=== PATIENT | female | born 1960 | race Caucasian/White ===

== ENCOUNTER 2021-12-15 16:55 | Inpatient (IN) | payer OTHER ==
[~2021-12-15] VITALS: Ht 157.5 cm; Wt 78.5 kg
[2021-12-15] MEDS ORDERED: SODIUM CHLORIDE 0.9% 1,000 ML IV ONE (21:00)
[2021-12-15] MEDS ORDERED: PIPERACILLIN/TAZ 3.375G PREMIX 50 ML IV NR (21:30)
[2021-12-15] MEDS ORDERED: VANCOMYCIN 1G PREMIX 200 ML IV NR (22:00)
[2021-12-15 22:05] LABS: BASOPHILS % 0.6 % (0.0-2.0); EOSINOPHILS % 4.3 % (0.0-5.0); HEMATOCRIT. 28.7 % (36.0-48.0); HEMOGLOBIN. 9.4 g/dL (12.0-16.0); LYMPHOCYTES % 21.8 % (20.0-50.0); MEAN CORPUSCULAR HEMOGLOBIN 25.4 pg (28.0-32.0); MEAN CORPUSCULAR VOLUME 77.9 fL (81.0-99.0); MEAN PLATELET VOLUME 8.4 fl (7.4-10.4); MONOCYTES % 9.1 % (2.0-8.0); NEUTROPHILS % 64.2 % (40.0-76.0); PLATELET 251 x1000/uL (130-400); RED BLOOD CELL COUNT 3.69 mill/uL (4.2-5.4); RED CELL DISTRIBUTION WIDTH 17.1 % (11.6-14.6)
[2021-12-15 22:12] LABS: CHLORIDE 102 mEq/L (98-107)
[2021-12-16 05:08] VITALS: BP 109/57
[2021-12-16] MEDS ORDERED: DEXTROSE 50% WATER 50ML SYRINGE IV PRN (06:00)
[2021-12-16] MEDS: BLOOD SUGAR DIAGNOSTIC STRIP TEST SCH ×3 (07:06→20:45)
[2021-12-16] MEDS: INSULIN LISPRO 100 UNITS/ML SUBCUT SCH ×4 (07:50→21:32)
[2021-12-16 08:00] VITALS: BP 129/57
[2021-12-16] MEDS ORDERED: PIPERACILLIN/TAZOBACTAM 3.375 G in DEXTROSE 5% WATER 50 ML IV SCH (08:00)
[2021-12-16] MEDS: APIXABAN 2.5 MG TABLET PO SCH ×2 (09:00→17:16)
[2021-12-16] MEDS: PIPERACILLIN/TAZOBACTAM 3.375G in DEXT 5% WATER 50ML IV SCH ×3 (10:16→21:32)
[2021-12-16 12:00] VITALS: BP 126/51
[2021-12-16 16:00] VITALS: BP 136/56
[2021-12-16] MEDS ORDERED: VANCOMYCIN 750 MG in DEXT 5% WATER 250 ML IV SCH (16:00)
[2021-12-16 20:00] VITALS: BP 142/60
[2021-12-16] MEDS: ATORVASTATIN CALCIUM 40MG TABLET PO SCH (21:32)
[2021-12-17] VITALS: BP 134/53
[2021-12-17] MEDS ORDERED: ATOR-2 MT (02:47)
[2021-12-17] MEDS ORDERED: APIX2.5T MT (02:47)
[2021-12-17] MEDS ORDERED: CLOP-31 PO (02:49)
[2021-12-17] MEDS ORDERED: LISI-186 MT (02:49)
[2021-12-17] MEDS ORDERED: ERTU5TAB PO (02:50)
[2021-12-17] MEDS ORDERED: GABA-532 PO (02:51)
[2021-12-17 04:00] VITALS: BP 140/68
[2021-12-17] MEDS: BLOOD SUGAR DIAGNOSTIC STRIP TEST SCH ×4 (06:05→20:09)
[2021-12-17] MEDS: INSULIN LISPRO 100 UNITS/ML SUBCUT SCH ×4 (06:05→20:09)
[2021-12-17] MEDS: PIPERACILLIN/TAZOBACTAM 3.375G in DEXT 5% WATER 50ML IV SCH ×3 (06:05→21:03)
[2021-12-17 07:20] LABS: BASOPHILS % 0.9 % (0.0-2.0); EOSINOPHILS % 6.5 % (0.0-5.0); HEMATOCRIT. 26.4 % (36.0-48.0); HEMOGLOBIN. 8.5 g/dL (12.0-16.0); LYMPHOCYTES % 33.9 % (20.0-50.0); MEAN CORPUSCULAR HEMOGLOBIN 25.2 pg (28.0-32.0); MEAN CORPUSCULAR VOLUME 78.4 fL (81.0-99.0); MEAN PLATELET VOLUME 8.3 fl (7.4-10.4); MONOCYTES % 8.3 % (2.0-8.0); NEUTROPHILS % 50.4 % (40.0-76.0); PLATELET 228 x1000/uL (130-400); RED BLOOD CELL COUNT 3.37 mill/uL (4.2-5.4); RED CELL DISTRIBUTION WIDTH 16.9 % (11.6-14.6)
[2021-12-17 08:00] VITALS: BP 130/58
[2021-12-17] MEDS: APIXABAN 2.5 MG TABLET PO SCH ×2 (08:15→17:00)
[2021-12-17 12:00] VITALS: BP 131/50
[2021-12-17] MEDS ORDERED: IOHEXOL-350 100 ML BOTTLE ONE (12:24)
[2021-12-17] MEDS ORDERED: SILV50CR31 TP (14:24)
[2021-12-17] MEDS ORDERED: TC025C15 TP (14:24)
[2021-12-17] MEDS ORDERED: INSNOV SUBCUT (14:24)
[2021-12-17 16:00] VITALS: BP 124/61
[2021-12-17] MEDS: VANCOMYCIN 750 MG in DEXT 5% WATER 250 ML IV SCH (18:27)
[2021-12-17 20:00] VITALS: BP 152/59
[2021-12-17] MEDS: ATORVASTATIN CALCIUM 40MG TABLET PO SCH (20:07)
[2021-12-18] VITALS: BP 143/61
[2021-12-18 04:00] VITALS: BP 117/42
[2021-12-18] MEDS: PIPERACILLIN/TAZOBACTAM 3.375G in DEXT 5% WATER 50ML IV SCH ×3 (05:39→22:31)
[2021-12-18] MEDS: BLOOD SUGAR DIAGNOSTIC STRIP TEST SCH ×4 (05:42→21:00)
[2021-12-18] MEDS: INSULIN LISPRO 100 UNITS/ML SUBCUT SCH ×4 (07:02→22:38)
[2021-12-18] MEDS: APIXABAN 2.5 MG TABLET PO SCH ×3 (09:00→17:19)
[2021-12-18] MEDS: VANCOMYCIN 750 MG in DEXT 5% WATER 250 ML IV SCH (12:08)
[2021-12-18 20:00] VITALS: BP 130/53
[2021-12-18] MEDS: ATORVASTATIN CALCIUM 40MG TABLET PO SCH (22:30)
[2021-12-19] VITALS: BP 126/53
[2021-12-19 04:00] VITALS: BP 143/58
[2021-12-19 04:35] LABS: VANCOMYCIN TROUGH 24.3 ug/mL (5.0-10.0)
[2021-12-19] MEDS: PIPERACILLIN/TAZOBACTAM 3.375G in DEXT 5% WATER 50ML IV SCH ×3 (06:05→21:31)
[2021-12-19] MEDS: BLOOD SUGAR DIAGNOSTIC STRIP TEST SCH ×4 (06:08→21:24)
[2021-12-19] MEDS: INSULIN LISPRO 100 UNITS/ML SUBCUT SCH ×4 (07:50→21:31)
[2021-12-19 08:00] VITALS: BP 141/52
[2021-12-19 08:04] LABS: BASOPHILS % 0.9 % (0.0-2.0); EOSINOPHILS % 6.3 % (0.0-5.0); HEMATOCRIT. 27.4 % (36.0-48.0); HEMOGLOBIN. 8.9 g/dL (12.0-16.0); LYMPHOCYTES % 28.5 % (20.0-50.0); MEAN CORPUSCULAR HEMOGLOBIN 25.2 pg (28.0-32.0); MEAN CORPUSCULAR VOLUME 77.9 fL (81.0-99.0); MEAN PLATELET VOLUME 7.9 fl (7.4-10.4); MONOCYTES % 7.8 % (2.0-8.0); NEUTROPHILS % 56.5 % (40.0-76.0); PLATELET 251 x1000/uL (130-400); RED BLOOD CELL COUNT 3.52 mill/uL (4.2-5.4); RED CELL DISTRIBUTION WIDTH 16.7 % (11.6-14.6)
[2021-12-19] MEDS: APIXABAN 2.5 MG TABLET PO SCH ×2 (09:00→16:34)
[2021-12-19] MEDS ORDERED: LIDOCAINE HCL 1% 10 MG/ML 10ML VIAL ONE (10:59)
[2021-12-19] MEDS ORDERED: IODIXANOL 320MG/ML 100 ML BOTTLE IV ONE (10:59)
[2021-12-19] MEDS ORDERED: FENTANYL CITRATE/PF 50MCG/ML 2ML VIAL ONE (11:32)
[2021-12-19] MEDS ORDERED: HEPARIN 1000 UNITS/ML 10ML ONE (11:32)
[2021-12-19] MEDS ORDERED: MIDAZOLAM HCL 2 MG/2 ML VIAL ONE (11:32)
[2021-12-19] MEDS ORDERED: PROTAMINE SULFATE 10MG/ML VIAL 25ML IV ONE (12:23)
[2021-12-19] MEDS ORDERED: PROTAMINE SULFATE 10MG/ML VIAL 5ML IV ONE (12:24)
[2021-12-19] MEDS ORDERED: HYDROCODONE/ACETAMINOPHEN 5/325MG TABLET PO PRN (14:00)
[2021-12-19] MEDS ORDERED: NALOXONE HCL 0.4MG/ML VIAL IV PRN (15:15)
[2021-12-19 16:00] VITALS: BP_SYST 147; BP_SYST 156; BP_DIAS 67; BP_DIAS 84
[2021-12-19 20:00] VITALS: BP 150/54
[2021-12-19] MEDS: ATORVASTATIN CALCIUM 40MG TABLET PO SCH (21:32)
[2021-12-20] VITALS: BP 108/60
[2021-12-20] MEDS ORDERED: VANCOMYCIN 750MG PREMIX 150 ML IV SCH
[2021-12-20] MEDS ORDERED: VANCOMYCIN 750 MG in DEXT 5% WATER 250 ML IV SCH ×2
[2021-12-20 04:00] VITALS: BP 148/63
[2021-12-20] MEDS: VANCOMYCIN 1GM PMX (XELLIA) 200 ML IV SCH (05:00)
[2021-12-20] MEDS: PIPERACILLIN/TAZOBACTAM 3.375G in DEXT 5% WATER 50ML IV SCH ×3 (05:01→22:25)
[2021-12-20] MEDS: BLOOD SUGAR DIAGNOSTIC STRIP TEST SCH ×4 (06:21→20:37)
[2021-12-20] MEDS: INSULIN LISPRO 100 UNITS/ML SUBCUT SCH ×4 (06:21→20:37)
[2021-12-20 08:00] VITALS: BP 134/65
[2021-12-20] MEDS: APIXABAN 2.5 MG TABLET PO SCH ×2 (09:30→17:43)
[2021-12-20 12:00] VITALS: BP 120/56
[2021-12-20 12:31] LABS: TOTAL IRON BINDING CAPACITY 237 ug/dL (250-450)
[2021-12-20] MEDS: DOCUSATE SODIUM 250MG CAPSULE PO SCH (13:06)
[2021-12-20 16:00] VITALS: BP 150/63
[2021-12-20 20:00] VITALS: BP 135/63
[2021-12-20] MEDS: ATORVASTATIN CALCIUM 40MG TABLET PO SCH (20:35)
[2021-12-21] VITALS: BP 132/45
[2021-12-21 04:00] VITALS: BP 120/65
[2021-12-21] MEDS: BLOOD SUGAR DIAGNOSTIC STRIP TEST SCH ×4 (07:20→20:57)
[2021-12-21 08:00] VITALS: BP 143/60
[2021-12-21] MEDS: APIXABAN 2.5 MG TABLET PO SCH ×2 (08:56→18:14)
[2021-12-21] MEDS: DOCUSATE SODIUM 250MG CAPSULE PO SCH (08:56)
[2021-12-21] MEDS: INSULIN LISPRO 100 UNITS/ML SUBCUT SCH ×4 (08:58→20:58)
[2021-12-21 12:00] VITALS: BP 129/53
[2021-12-21 16:00] VITALS: BP 153/65
[2021-12-21] MEDS: VANCOMYCIN 1GM PMX (XELLIA) 200 ML IV SCH (18:14)
[2021-12-21] MEDS: ATORVASTATIN CALCIUM 40MG TABLET PO SCH (20:52)
[2021-12-22] VITALS: BP 118/61
[2021-12-22 04:00] VITALS: BP 119/71
[2021-12-22 07:03] LABS: HEMATOCRIT 26.7 % (36.0-48.0); HEMOGLOBIN 8.7 g/dL (12.0-16.0); MEAN CORPUSCULAR HEMOGLOBIN 25.3 pg (28.0-32.0); MEAN CORPUSCULAR VOLUME 77.7 fL (81.0-99.0); PLATELET 248 x1000/uL (130-400); RED BLOOD CELL COUNT 3.44 mill/uL (4.2-5.4)
[2021-12-22] MEDS: INSULIN LISPRO 100 UNITS/ML SUBCUT SCH ×4 (07:50→21:38)
[2021-12-22 08:00] VITALS: BP 154/67
[2021-12-22] MEDS: BLOOD SUGAR DIAGNOSTIC STRIP TEST SCH ×4 (08:14→21:39)
[2021-12-22] MEDS ORDERED: LIDOCAINE HCL 1% 50ML VIAL (10MG/ML) ONE (08:51)
[2021-12-22] MEDS ORDERED: POLYMYXIN B SULFATE 500000 UNITS/VIAL ONE (08:51)
[2021-12-22] MEDS ORDERED: BUPIVACAINE HCL/PF 0.5% (5MG/ML) 30ML ONE (08:52)
[2021-12-22] MEDS ORDERED: BACITRACIN 15GM TUBE TOP ONE (08:52)
[2021-12-22] MEDS: CLONIDINE 0.1MG TABLET PO PRN ×2 (12:56→16:06)
[2021-12-22 16:00] VITALS: BP 133/64
[2021-12-22] MEDS: DOCUSATE SODIUM 250MG CAPSULE PO SCH ×2 (16:05→18:02)
[2021-12-22] MEDS: APIXABAN 2.5 MG TABLET PO SCH ×2 (16:06→18:02)
[2021-12-22 17:15] LABS: BASOPHILS % 0.6 % (0.0-2.0); EOSINOPHILS % 4.2 % (0.0-5.0); HEMATOCRIT. 27.2 % (36.0-48.0); HEMOGLOBIN. 8.7 g/dL (12.0-16.0); LYMPHOCYTES % 27.4 % (20.0-50.0); MEAN CORPUSCULAR VOLUME 78.3 fL (81.0-99.0); MEAN PLATELET VOLUME 8.1 fl (7.4-10.4); MONOCYTES % 6.4 % (2.0-8.0); NEUTROPHILS % 61.4 % (40.0-76.0); PLATELET 248 x1000/uL (130-400); RED BLOOD CELL COUNT 3.47 mill/uL (4.2-5.4); RED CELL DISTRIBUTION WIDTH 17.5 % (11.6-14.6)
[2021-12-22] MEDS ORDERED: VANCOMYCIN 1GM PMX (XELLIA) 200 ML IV SCH (18:00)
[2021-12-22 20:00] VITALS: BP 135/60
[2021-12-22] MEDS: ATORVASTATIN CALCIUM 40MG TABLET PO SCH (21:38)
[2021-12-22] MEDS: FAMOTIDINE 20MG TABLET PO SCH (21:38)
[2021-12-22] MEDS: PIPERACILLIN/TAZOBACTAM 3.375 G in DEXTROSE 5% WATER 50 ML IV SCH (21:39)
[2021-12-23] VITALS: BP 140/62
[2021-12-23 04:00] VITALS: BP 131/68
[2021-12-23] MEDS: BLOOD SUGAR DIAGNOSTIC STRIP TEST SCH ×4 (06:31→21:00)
[2021-12-23] MEDS: PIPERACILLIN/TAZOBACTAM 3.375 G in DEXTROSE 5% WATER 50 ML IV SCH ×3 (06:31→23:45)
[2021-12-23] MEDS: INSULIN LISPRO 100 UNITS/ML SUBCUT SCH ×4 (07:41→21:00)
[2021-12-23 08:00] VITALS: BP_SYST 136; BP_SYST 141; BP_DIAS 55; BP_DIAS 78
[2021-12-23] MEDS: APIXABAN 2.5 MG TABLET PO SCH ×2 (09:40→18:50)
[2021-12-23 12:00] VITALS: BP 136/55
[2021-12-23 16:00] VITALS: BP 142/64
[2021-12-23 20:00] VITALS: BP 152/63
[2021-12-23] MEDS: FAMOTIDINE 20MG TABLET PO SCH (21:00)
[2021-12-23] MEDS: ATORVASTATIN CALCIUM 40MG TABLET PO SCH (23:45)
[2021-12-24] VITALS: BP 153/54
[2021-12-24 04:00] VITALS: BP 136/59
[2021-12-24] MEDS: PIPERACILLIN/TAZOBACTAM 3.375 G in DEXTROSE 5% WATER 50 ML IV SCH ×3 (06:00→22:08)
[2021-12-24] MEDS: VANCOMYCIN 1G PREMIX 200 ML IV SCH (06:00)
[2021-12-24] MEDS: BLOOD SUGAR DIAGNOSTIC STRIP TEST SCH ×4 (07:36→21:00)
[2021-12-24] MEDS: DOCUSATE SODIUM 250MG CAPSULE PO SCH (09:23)
[2021-12-24] MEDS: APIXABAN 2.5 MG TABLET PO SCH ×2 (09:23→17:57)
[2021-12-24] MEDS: INSULIN LISPRO 100 UNITS/ML SUBCUT SCH ×3 (09:53→17:49)
[2021-12-24 12:00] VITALS: BP 180/78
[2021-12-24] MEDS: CLONIDINE 0.1MG TABLET PO PRN (18:04)
[2021-12-24 20:00] VITALS: BP 112/52
[2021-12-24] MEDS: ATORVASTATIN CALCIUM 40MG TABLET PO SCH (22:07)
[2021-12-24] MEDS: FAMOTIDINE 20MG TABLET PO SCH (22:07)
[2021-12-25] VITALS: BP 141/55
[2021-12-25] MEDS: INSULIN LISPRO 100 UNITS/ML SUBCUT SCH ×5 (00:11→22:21)
[2021-12-25 04:00] VITALS: BP 137/48
[2021-12-25] MEDS: BLOOD SUGAR DIAGNOSTIC STRIP TEST SCH ×4 (05:58→21:22)
[2021-12-25] MEDS: PIPERACILLIN/TAZOBACTAM 3.375 G in DEXTROSE 5% WATER 50 ML IV SCH ×3 (05:58→22:21)
[2021-12-25 08:00] VITALS: BP 106/58
[2021-12-25] MEDS: APIXABAN 2.5 MG TABLET PO SCH ×2 (09:17→16:27)
[2021-12-25] MEDS: DOCUSATE SODIUM 250MG CAPSULE PO SCH (09:17)
[2021-12-25 12:00] VITALS: BP 159/69
[2021-12-25 15:43] VITALS: BP 159/63
[2021-12-25] MEDS: VANCOMYCIN 1G PREMIX 200 ML IV SCH (17:10)
[2021-12-25 20:00] VITALS: BP 118/55
[2021-12-25] MEDS: FAMOTIDINE 20MG TABLET PO SCH (21:22)
[2021-12-25] MEDS: ATORVASTATIN CALCIUM 40MG TABLET PO SCH (21:22)
[2021-12-26] VITALS: BP 128/67
[2021-12-26 04:00] VITALS: BP 133/55
[2021-12-26] MEDS: PIPERACILLIN/TAZOBACTAM 3.375 G in DEXTROSE 5% WATER 50 ML IV SCH ×2 (06:00→13:09)
[2021-12-26] MEDS: BLOOD SUGAR DIAGNOSTIC STRIP TEST SCH ×2 (07:31→12:20)
[2021-12-26 08:00] VITALS: BP 166/69
[2021-12-26] MEDS ORDERED: SULF1TAB48 MT (09:27)
[2021-12-26] MEDS ORDERED: LEVO250T43 MT (09:27)
[2021-12-26] MEDS: DOCUSATE SODIUM 250MG CAPSULE PO SCH (09:55)
[2021-12-26] MEDS: APIXABAN 2.5 MG TABLET PO SCH (09:55)
[2021-12-26] MEDS: INSULIN LISPRO 100 UNITS/ML SUBCUT SCH ×2 (09:59→13:31)
[2021-12-26 12:00] VITALS: BP 158/70
[2021-12-26 12:32] VITALS: BP 158/70
== END 2021-12-26 16:00 | disposition home health service (06) | DRG 240 ==
LOC: ER 16:55 → 6EST 12-16 00:45 → ENRESERV 12-16 04:14
PROVIDERS: ADMIT Internal Medicine; ATTEND Internal Medicine
PROC: 047L3DZ Dilation of Left Femoral Artery with Intraluminal Device, Percutaneous Approach (ICD-10-PCS; principal; 2021-12-19)
PROC: 047N3DZ Dilation of Left Popliteal Artery with Intraluminal Device, Percutaneous Approach (ICD-10-PCS; 2021-12-19)
PROC: 0JBR0ZZ Excision of Left Foot Subcutaneous Tissue and Fascia, Open Approach (ICD-10-PCS; 2021-12-22)
PROC: 0Y6N0ZC Detachment at Left Foot, Partial 3rd Ray, Open Approach (ICD-10-PCS; 2021-12-22)
DX: E11.52 Type 2 diabetes mellitus with diabetic peripheral angiopathy with gangrene (principal); E44.1 Mild protein-calorie malnutrition; M86.8X7 Other osteomyelitis, ankle and foot; N17.9 Acute kidney failure, unspecified; E11.69 Type 2 diabetes mellitus with other specified complication; S92.912A Unspecified fracture of left toe(s), initial encounter for closed fracture; E11.22 Type 2 diabetes mellitus with diabetic chronic kidney disease; N18.9 Chronic kidney disease, unspecified; D50.9 Iron deficiency anemia, unspecified; X58.XXXA Exposure to other specified factors, initial encounter; E11.621 Type 2 diabetes mellitus with foot ulcer; E11.628 Type 2 diabetes mellitus with other skin complications; L97.529 Non-pressure chronic ulcer of other part of left foot with unspecified severity; E66.9 Obesity, unspecified; Z20.822 Contact with and (suspected) exposure to COVID-19; L03.032 Cellulitis of left toe; Z79.01 Long term (current) use of anticoagulants; Z79.4 Long term (current) use of insulin; Z89.431 Acquired absence of right foot; Z71.3 Dietary counseling and surveillance; Y93.89 Activity, other specified; Y92.89 Other specified places as the place of occurrence of the external cause; Y99.8 Other external cause status; Z68.31 Body mass index [BMI] 31.0-31.9, adult
CPT/HCPCS: 36415; 37226; 71045; 73630; 75635; 75710; 80048; 80053; 80202; 82728; 82962; 83036; 83540; 83550; 83605; 84145; 85025; 85027; 85651; 86850; 86900; 87070; 87075; 87426; 88302; 88311; 93005; 93923; 97110; 97116; 97162; 97530; 99291; C1760; C1769; C1876; C1893; C1894; C2623; J1644; J1815; J2250; J2543; J2720; J3010; J3370; J3490; J7040; J7042; J7060; Q9967

== ENCOUNTER 2022-08-22 15:35 | Inpatient (IN) | payer OTHER ==
[~2022-08-22] VITALS: Ht 167.6 cm; Wt 60.9 kg
[~2022-08-22 15:35] MED LIST: APIX2.5T MT; ATOR-2 MT; CLOP-31 PO; ERTU5TAB PO; GABA-532 PO; INSNOV SUBCUT; LEVO250T74 MT; LISI-186 MT; SILV50CR31 TP; SULF1TAB48 MT; TC025C15 TP
[2022-08-22 20:21] LABS: BASOPHILS % 0.7 % (0.0-2.0); EOSINOPHILS % 1.1 % (0.0-5.0); HEMATOCRIT. 29.2 % (36.0-48.0); HEMOGLOBIN. 9.3 g/dL (12.0-16.0); LYMPHOCYTES % 22.7 % (20.0-50.0); MEAN CORPUSCULAR HEMOGLOBIN 24.9 pg (28.0-32.0); MEAN CORPUSCULAR VOLUME 77.9 fL (81.0-99.0); MEAN PLATELET VOLUME 8.6 fl (7.4-10.4); MONOCYTES % 9.3 % (2.0-8.0); NEUTROPHILS % 66.2 % (40.0-76.0); PLATELET 300 x1000/uL (130-400); RED BLOOD CELL COUNT 3.75 mill/uL (4.2-5.4); RED CELL DISTRIBUTION WIDTH 15.3 % (11.6-14.6)
[2022-08-22 20:24] LABS: CHLORIDE 109 mEq/L (98-107)
[2022-08-23 05:55] VITALS: BP 105/40
[2022-08-23 08:00] VITALS: BP 121/47
[2022-08-23] MEDS ORDERED: ACETAMINOPHEN 325MG TABLET PO PRN (08:15)
[2022-08-23] MEDS ORDERED: ONDANSETRON HCL 4MG/2ML INJ IV PRN (08:15)
[2022-08-23] MEDS: SODIUM BICARBONATE 50 MEQ in SODIUM CHLORIDE 0.45% 1,000 ML IV SCH (10:20)
[2022-08-23] MEDS: PANTOPRAZOLE SODIUM 40 MG/VIAL IV SCH ×2 (10:20→16:42)
[2022-08-23 12:00] VITALS: BP 131/53
[2022-08-23 16:00] VITALS: BP 106/44
[2022-08-23 19:02] LABS: CLARITY URINE CLOUDY (CLEAR); COLOR URINE YELLOW (YELLOW); KETONES URINE NEGATIVE (NEGATIVE); LEUKOCYTE ESTERASE URINE 3+ (NEGATIVE); NITRITE URINE NEGATIVE (NEGATIVE); OCCULT BLOOD URINE TRACE (NEGATIVE); PROTEIN URINE 1+ (NEGATIVE); SPECIFIC GRAVITY URINE 1.017 (1.005-1.030); UROBILINOGEN URINE 0.2 E.U./dL (0.2-1.0)
[2022-08-23 20:00] VITALS: BP 132/50
[2022-08-23 20:34] LABS: TOTAL IRON BINDING CAPACITY 356 ug/dL (250-450)
[2022-08-23 20:47] LABS: FERRITIN 12 ng/mL (10-291)
[2022-08-23 20:52] LABS: VITAMIN B12 SERUM 923 pg/mL (211-911)
[2022-08-23] MEDS ORDERED: CEFTRIAXONE 1 G PREMIX 50 ML IV SCH (21:00)
[2022-08-23 21:03] LABS: HEMATOCRIT 26.2 % (36.0-48.0); HEMOGLOBIN 8.3 g/dL (12.0-16.0)
[2022-08-24] VITALS (7 sets, daily range): BP systolic 85–149; BP diastolic 36–60
[2022-08-24] MEDS: CEFTRIAXONE 1,000 MG in DEXTROSE 5% WATER 50 ML IV SCH ×2 (00:01→21:56)
[2022-08-24 00:51] LABS: HEMATOCRIT 23.6 % (36.0-48.0); HEMOGLOBIN 7.8 g/dL (12.0-16.0)
[2022-08-24 03:04] LABS: BASOPHILS % 0.5 % (0.0-2.0); HEMATOCRIT. 24.3 % (36.0-48.0); HEMOGLOBIN. 7.9 g/dL (12.0-16.0); MEAN CORPUSCULAR HEMOGLOBIN 24.9 pg (28.0-32.0); MEAN CORPUSCULAR VOLUME 76.6 fL (81.0-99.0); MEAN PLATELET VOLUME 8.6 fl (7.4-10.4); NEUTROPHILS % 50.5 % (40.0-76.0); PLATELET 239 x1000/uL (130-400); RED BLOOD CELL COUNT 3.17 mill/uL (4.2-5.4); RED CELL DISTRIBUTION WIDTH 14.7 % (11.6-14.6)
[2022-08-24 03:15] LABS: PROTHROMBIN TIME 10.3 sec (9.6-11.0)
[2022-08-24 03:32] LABS: CHLORIDE 110 mEq/L (98-107)
[2022-08-24] MEDS: SODIUM BICARBONATE 50 MEQ in SODIUM CHLORIDE 0.45% 1,000 ML IV SCH (06:24)
[2022-08-24] MEDS: PANTOPRAZOLE SODIUM 40 MG/VIAL IV SCH ×2 (08:26→17:04)
[2022-08-24 12:22] LABS: HEMATOCRIT 25.9 % (36.0-48.0); HEMOGLOBIN 8.4 g/dL (12.0-16.0)
[2022-08-24] MEDS ORDERED: OMEP40CA20 MT (12:43)
[2022-08-24] MEDS ORDERED: LEVO250T74 MT (12:43)
[2022-08-24] MEDS ORDERED: MIDAZOLAM HCL 2 MG/2 ML VIAL ONE (13:37)
[2022-08-24] MEDS ORDERED: DEXAMETHASONE 4MG/ML 1ML VIAL ONE (13:37)
[2022-08-24] MEDS ORDERED: PROPOFOL 200MG/20ML VIAL IV ONE (13:37)
[2022-08-24] MEDS ORDERED: ONDANSETRON HCL 4MG/2ML INJ ONE (13:37)
[2022-08-24] MEDS ORDERED: LIDOCAINE HCL 1% 10 MG/ML 10ML VIAL ONE (13:44)
[2022-08-24] MEDS: SUCRALFATE 1G TABLET PO SCH ×2 (17:04→21:45)
[2022-08-24] MEDS: SODIUM CHLORIDE 0.9% 1,000 ML IV SCH (21:45)
[2022-08-25] VITALS: BP 141/61
[2022-08-25 04:00] VITALS: BP_SYST 155; BP_SYST 159; BP_DIAS 67; BP_DIAS 68
[2022-08-25 05:48] LABS: BASOPHILS % 0.2 % (0.0-2.0); EOSINOPHILS % 0.1 % (0.0-5.0); HEMATOCRIT. 24.7 % (36.0-48.0); LYMPHOCYTES % 19.8 % (20.0-50.0); MEAN CORPUSCULAR HEMOGLOBIN 25.2 pg (28.0-32.0); MEAN CORPUSCULAR VOLUME 77.4 fL (81.0-99.0); MEAN PLATELET VOLUME 9.1 fl (7.4-10.4); MONOCYTES % 7.6 % (2.0-8.0); NEUTROPHILS % 72.3 % (40.0-76.0); PLATELET 238 x1000/uL (130-400); RED CELL DISTRIBUTION WIDTH 14.7 % (11.6-14.6)
[2022-08-25] MEDS: SODIUM CHLORIDE 0.9% 1,000 ML IV SCH (06:19)
[2022-08-25 08:00] VITALS: BP 161/66
[2022-08-25] MEDS: SUCRALFATE 1G TABLET PO SCH ×2 (08:10→12:27)
[2022-08-25] MEDS: PANTOPRAZOLE SODIUM 40 MG/VIAL IV SCH (08:10)
[2022-08-25 08:24] LABS: CHLORIDE 106 mEq/L (98-107)
[2022-08-25] MEDS ORDERED: CLONIDINE 0.1MG TABLET PO PRN (08:30)
[2022-08-25 09:35] VITALS: BP 151/60
[2022-08-25] MEDS ORDERED: DEXTROSE 50% WATER 50ML SYRINGE IV PRN (11:15)
[2022-08-25 12:00] VITALS: BP 149/54
[2022-08-25] MEDS ORDERED: DIATR MEGLU/DIATRIZOATE SOLN 30ML PO NR (12:00)
[2022-08-25] MEDS ORDERED: BLOOD SUGAR DIAGNOSTIC STRIP TEST SCH (12:40)
[2022-08-25] MEDS ORDERED: INSULIN LISPRO 100 UNITS/ML SUBCUT SCH (13:10)
[2022-08-25 16:00] VITALS: BP 139/62
[2022-08-26] MEDS ORDERED: PANTOPRAZOLE SODIUM 40 MG/VIAL IV SCH (09:00)
== END 2022-08-25 16:30 | disposition home or self-care (01) | DRG 380 ==
LOC: ER 16:23 → MICUSO 21:28 → EDBEDREQTM 21:33 → EDBEDREQ 21:33 → 7WST 08-23 05:50
PROVIDERS: ADMIT Internal Medicine; ATTEND Internal Medicine
PROC: 0DB78ZX Excision of Stomach, Pylorus, Via Natural or Artificial Opening Endoscopic, Diagnostic (ICD-10-PCS; principal; 2022-08-24)
PROC: 0DB68ZX Excision of Stomach, Via Natural or Artificial Opening Endoscopic, Diagnostic (ICD-10-PCS; 2022-08-24)
DX: K22.11 Ulcer of esophagus with bleeding (principal); N17.0 Acute kidney failure with tubular necrosis; N39.0 Urinary tract infection, site not specified; I48.20 Chronic atrial fibrillation, unspecified; K29.71 Gastritis, unspecified, with bleeding; E87.5 Hyperkalemia; I10 Essential (primary) hypertension; E11.51 Type 2 diabetes mellitus with diabetic peripheral angiopathy without gangrene; I48.91 Unspecified atrial fibrillation; D53.9 Nutritional anemia, unspecified; Z20.822 Contact with and (suspected) exposure to COVID-19; Z87.891 Personal history of nicotine dependence; Z79.02 Long term (current) use of antithrombotics/antiplatelets; Z79.4 Long term (current) use of insulin; Z79.01 Long term (current) use of anticoagulants; Z89.431 Acquired absence of right foot
CPT/HCPCS: 36415; 71045; 74176; 80048; 80053; 80076; 81003; 82607; 82728; 82746; 82962; 83540; 83550; 83880; 84484; 85014; 85018; 85025; 85044; 86850; 86900; 87426; 88305; 93005; 99285; C1893; C9113; J0696; J1100; J1815; J2250; J2405; J2704; J3490; J7030; J7060; Q9963